=== PATIENT | female | born 1950 | race Caucasian/White ===

== ENCOUNTER 2016-12-28 13:18 | Inpatient (IN) | END 2017-01-01 19:00 | disposition home or self-care (01) | DRG 66 | DX: I63.9 Cerebral infarction, unspecified (principal); R47.01 Aphasia; D47.3 Essential (hemorrhagic) thrombocythemia; E11.9 Type 2 diabetes mellitus without complications; D72.819 Decreased white blood cell count, unspecified; G47.33 Obstructive sleep apnea (adult) (pediatric); R20.2 Paresthesia of skin; G89.29 Other chronic pain; M54.9 Dorsalgia, unspecified; Z85.3 Personal history of malignant neoplasm of breast; Z92.21 Personal history of antineoplastic chemotherapy; Z92.3 Personal history of irradiation; M70.41 Prepatellar bursitis, right knee; G43.909 Migraine, unspecified, not intractable, without status migrainosus; R74.0 Nonspecific elevation of levels of transaminase and lactic acid dehydrogenase [LDH]; Z79.84 Long term (current) use of oral hypoglycemic drugs; S89.81XA Other specified injuries of right lower leg, initial encounter; W18.30XA Fall on same level, unspecified, initial encounter; Y93.02 Activity, running ==